=== PATIENT | male | born 1990 | race Caucasian/White ===

== ENCOUNTER 2025-02-10 15:20 | Emergency (ER) | payer OTHER ==
[~2025-02-10] VITALS: Ht 172.7 cm; Wt 75.0 kg
[2025-02-10 15:22] VITALS: TEMP 98; O2SAT 100
[2025-02-10] MEDS: LORAZEPAM 1MG TABLET PO ONE (17:04)
[2025-02-10] MEDS ORDERED: HYDR-459 MT (17:40)
[2025-02-10 18:00] VITALS: BP 124/78; PULSE 84; RESP 16; O2SAT 100
== END 2025-02-10 18:05 | disposition home or self-care (01) ==
LOC: ER 15:20
DX: F41.0 Panic disorder [episodic paroxysmal anxiety] (principal); R07.9 Chest pain, unspecified
CPT/HCPCS: 93005; 99283